=== PATIENT | female | born 1980 | race Caucasian/White ===

== ENCOUNTER 2025-01-16 18:03 | Day surgery (SDC) | payer BC, SELFPAY ==
[2025-01-16 18:07] VITALS: BP 155/99; PULSE 128; RESP 18; TEMP 37; O2SAT 99; BMI 27.8
--- NOTE | 2025-01-16 18:27 | CRLHL7_ITS ---
For Patients: As a result of the Century Cures Act, medical imaging exams and procedure reports are released immediately into your electronic medical record. You may view this report before your referring provider. If you have questions, please contact your health care provider. CLINICAL HISTORY: Right upper quadrant pain FINDINGS: Increased echogenicity of the liver. There is a normal appearance of the hepatic IVC and proximal abdominal aorta. There is no evidence of ascites. Stones in the gallbladder. The gallbladder wall measures for mm in thickness. Positive sonographic Barcenas`s sign. The common bile duct is of normal size and measures 3 mm in diameter at the level of the taylor hepatis. The visualized portions of the pancreas appears normal. Right kidney is unremarkable. IMPRESSION: 1. Cholelithiasis with wall thickening and positive sonographic Barcenas`s sign. Findings may reflect cholecystitis. Dictated by Devorah Molina MD @ 01/16/2025 8:10:34 PM (Electronically Signed)
--- NOTE | 2025-01-16 18:29 | ED_ITS ---
HPI - General Adult General Chief complaint: Abdominal Pain Stated complaint: Upper abdominal pain Time Seen by Provider: 01/16/25 18:05 History of Present Illness HPI narrative: Patient is a 44-year-old white female that is had intermittent nausea from Friday RO which she has been on for about the last 10 months. She has taken some Zofran that helped that. Since yesterday she has had pain in her epigastrium radiating through to her back. She reports she had a cardiac workup and a ultrasound over a year ago that were unremarkable. She denies trauma injury, food exacerbation. She has had no history of reflux. She has generally been pretty healthy. She does take iron, metformin minocycline. As mentioned she is also on Mounjaro. Related Data Home Medications ?Medication ?Instructions ?Recorded ?Confirmed ascorbic acid (vitamin C) 500 mg 500 mg PO DAILY 01/16/25 01/16/25 chewable tablet (Acerola C) cetirizine 10 mg tablet (24Hour 10 mg PO DAILY PRN 01/16/25 01/16/25 Allergy) ferrous sulfate 325 mg (65 mg 325 mg PO DAILY 01/16/25 01/16/25 iron) tablet (Feosol) metformin 500 mg tablet 500 mg PO QID 01/16/25 01/16/25 minocycline 50 mg capsule 50 mg PO DAILY 01/16/25 01/16/25 ondansetron HCl 4 mg tablet 4 mg PO Q6-8H PRN 01/16/25 01/16/25 soy isoflavone-black cohosh cap PO 01/16/25 root-magnolia bark 155 mg capsule (Estroven) tirzepatide 10 mg/0.5 mL 10 mg subcut QWEEK 01/16/25 01/16/25 subcutaneous pen injector (Mounjaro) Allergies Allergy/AdvReac Type Severity Reaction Status Date / Time codeine AdvReac Intermediate Verified 01/16/25 18:20 prochlorperazine (From AdvReac Intermediate Verified 01/16/25 18:20 Compazine) Review of Systems Status of ROS: Reports: 6 or more systems reviewed and unremarkable except as noted in History and below Exam Narrative: Exam Narrative: Objective: Patient's vital signs show slightly elevated blood pressure, pulse is slightly elevated 128. She is alert or x3 No marked distress HEENT is unremarkable heart rhythm regular heart murmur Lungs clear Pulses regular Abdomen soft, mild right upper quadrant epigastric tenderness to palpation. Mild guarding but no rebound or rigidity. Normal active bowel sounds Extremities normal neurologic nonfocal. Const: Vital Signs, click to edit/add: Vital Signs - 24 hr 01/16/25 18:07 01/16/25 19:04 01/16/25 19:15 Temperature 98.6 F Pulse Rate 107 H 99 Pulse Rate [Right Pulse Oximeter] 128 H Respiratory Rate 18 16 Blood Pressure [Ri ght Upper Arm] 155/99 H Pulse Oximetry 99 98 98 Oxygen Delivery Me thod Room Air 01/16/25 19:30 Temperature Pulse Rate 94 Pulse Rate [Right Pulse Oximeter] Respiratory Rate Blood Pressure [Ri ght Upper Arm] Pulse Oximetry 100 Oxygen Delivery Me thod Course Vital Signs Vital signs: Initial Vital Signs Temperature 98.6 F 01/16/25 18:07 Temperature Source Temporal Artery Scan 01/16/25 18:07 Pulse Rate 128 H 01/16/25 18:07 Pulse Rhythm Regular 01/16/25 18:07 Pulse Strength 3+ Normal 01/16/25 18:07 Respiratory Rate 18 01/16/25 18:07 Blood Pressure 155/99 H 01/16/25 18:07 Blood Pressure Mean 117 H 01/16/25 18:07 Blood Pressure Position Sitting 01/16/25 18:07 Pulse Oximetry 99 01/16/25 18:07 Oxygen Delivery Method Room Air 01/16/25 18:07 Vital Signs Temperature 98.6 F 01/16/25 18:07 Pulse Rate 128 H 01/16/25 18:07 Respiratory Rate 18 01/16/25 18:07 Blood Pressure 155/99 H 01/16/25 18:07 Pulse Oximetry 99 01/16/25 18:07 Oxygen Delivery Method Room Air 01/16/25 18:07 Temperature 98.6 F 01/16/25 18:07 Pulse Rate 94 01/16/25 19:30 Respiratory Rate 16 01/16/25 19:15 Blood Pressure 155/99 H 01/16/25 18:07 Pulse Oximetry 100 01/16/25 19:30 Oxygen Delivery Method Room Air 01/16/25 18:07 Medications Administered Medications: Generic Name Dose Route Start Last Admin Trade Name Freq PRN Reason Stop Dose Admin Ampicillin Sodium/Sulbactam 100 mls @ 200 mls/hr 03/16/25 19:51 01/16/25 20:00 Sodium 3 gm/ Sodium Chloride IVPB 01/16/25 19:52 200 mls/hr ONCE ONE Administration Discontinued Medications Generic Name Dose Route Start Last Admin Trade Name Kayla PRN Reason Stop Dose Admin Sodium Chloride 1,000 mls @ 6,000 mls/hr 01/16/25 18:30 01/16/25 20:00 0.9 % Sodium Chloride 1000 Ml IV 01/16/25 18:39 Infused .Q10M DEISI Infusion Morphine Sulfate 2 mg 01/16/25 18:27 01/16/25 18:57 Morphine 4 Mg/Ml Inj IVP 01/16/25 18:28 2 mg ONCE ONE Administration Ondansetron HCl 4 mg 01/16/25 18:27 01/16/25 18:58 Ondansetron 2 Mg/Ml Inj IVP 01/16/25 18:28 Not Given ONCE ONE Pantoprazole Sodium 40 mg 01/16/25 18:27 01/16/25 18:57 Pantoprazole Sodium 40 Mg Inj IVP 01/16/25 18:28 40 mg ONCE ONE Administration Medical Decision Making MDM Narrative Medical decision making narrative: 44-year-old female with history of epigastric and right upper quadrant abdominal pain radiating through her back consistent with biliary colic. Patient could also certainly a peptic ulcer issues. She had a negative ultrasound about a year ago by her report. She gets her Mon General from her primary care doctor at [facility], she has had nausea from that, and thinking this could be related certainly the medication as well. I suspect more likely this is a biliary colic situation, and will check an ultrasound, lab studies, give IV fluid, pain control, Protonix. Will also give additional Zofran. Disposition pending findings above. Addendum 7:52 p.m.: The patient has a slightly thickened gallbladder wall, mobile gallstones, she had persistent pain from yesterday. Her alk-phos is normal but her LFTs are elevated, likely from her having a fatty liver or from her gallbladder illness. She has no pericholecystic fluid. Discussed with Dr. Fall who recommended admission, IV antibiotics and NPO status for probable cholecystectomy tomorrow. She requested admission to the hospitalist service will discuss with Dr. G. patient were in agreement. Lab Data Labs: Lab Results 01/16/25 01/16/25 Range/Units 18:28 18:40 WBC 10.60 (4.50-11.00) K/uL RBC 5.57 H (4.00-5.20) m/uL Hgb 16.0 (12.0-16.0) gm/dL Hct 45.6 (33.0-51.0) % MCV 82 (80-100) fL MCH 29 (26-34) pg MCHC 35 (32-36) gm/dL RDW Coeff of [place] 12.7 (11.5-15.5) % Plt Count 325 (140-440) K/uL Neut % (Auto) 75.6 H (42.0-72.0) % Lymph % (Auto) 17.3 L (20-44) % Wheeler % (Auto) 5.3 (0.0-11.0) % Eos % (Auto) 1.1 (0.0-7.0) % Baso % (Auto) 0.4 (0.0-3.0) % Neut # (Auto) 8.00 H (1.7-7.0) K/uL Lymph # (Auto) 1.80 (0.90-2.90) K/uL Wheeler # (Auto) 0.60 (0.00-0.90) K/UL Eos # (Auto) 0.12 (0.00-0.50) K/uL Baso # (Auto) 0.04 (0.00-0.30) K/uL Abs Immat Gran (auto) 0.03 (0.00-0.30) K/uL Imm/Tot Granulo (auto) 0.3 % Sodium 138 (135-149) mmol/L Potassium 3.6 (3.6-5.1) mmol/L Chloride 99 (96-114) mmol/L Carbon Dioxide 25 (20-32) mmol/L Anion Gap 14 (7-15) mEq/L BUN 13 (5-24) mg/dL Creatinine 0.6 (0.5-1.5) mg/dL Estimated Creat Clear 98.98 Estimated GFR 113 ml/min Glucose 107 (60-115) mg/dL Lactate 1.1 (0.5-1.9) mmol/L Calcium 9.6 (8.4-10.6) mg/dL Total Bilirubin 1.8 H (0.1-1.5) mg/dL Direct Bilirubin 1.2 H (0.0-0.5) mg/dL AST 178 H (12-35) U/L ALT 130 H (4-35) U/L Alkaline Phosphatase 104 (40-150) U/L C-Reactive Protein 1.4 H (0.5-1.0) mg/dL Total Protein 8.4 H (6.0-8.3) g/dL Albumin 5.0 (3.3-5.0) g/dL Amylase 68 (18-89) U/L HCG, Qual Negative (Negative) POC Troponin I 0.00 L (0.01-0.04) ng/ml Discharge Plan Discharge Clinical Impression: Abdominal pain, Acute cholecystitis Patient Disposition: Admitted As Observation
[2025-01-16 18:49] LABS: Lactate* 1.1 mmol/L (0.5-1.9)
[2025-01-16 18:50] LABS: Basophils Absolute Auto 0.04 K/uL (0.00-0.30); Basophils Percent Auto 0.4 % (0.0-3.0); Eosinophils Absolute Auto 0.12 K/uL (0.00-0.50); Eosinophils Percent Auto 1.1 % (0.0-7.0); Hematocrit 45.6 % (33.0-51.0); Immature Granulocytes Abs Auto 0.03 K/uL (0.00-0.30); Immature Granulocytes Pct Auto 0.3 %; Lymphocytes Percent Auto 17.3 % (20-44); Mean Corpuscular HGB Conc 35 gm/dL (32-36); Mean Corpuscular Hemoglobin 29 pg (26-34); Mean Corpuscular Volume 82 fL (80-100); Monocytes Percent Auto 5.3 % (0.0-11.0); Neutrophils Percent Auto 75.6 % (42.0-72.0); Platelet Count* 325 K/uL (140-440); RDW Coefficient of Variation % 12.7 % (11.5-15.5); Red Blood Count 5.57 m/uL (4.00-5.20)
[2025-01-16 18:51] LABS: Slide Review Reflex No
[2025-01-16] MEDS: PANTOPRAZOLE SODIUM 40 MG INJ IVP (18:57)
[2025-01-16] MEDS: MORPHINE 4 MG/ML INJ 2 MG IVP (18:57)
[2025-01-16] MEDS: 0.9 % SODIUM CHLORIDE 1000 ml 1,000 ML 6000 ML IV (18:58)
[2025-01-16 19:04] VITALS: PULSE 107; O2SAT 98
[2025-01-16 19:12] LABS: Chloride* 99 mmol/L (96-114)
[2025-01-16 19:13] LABS: Potassium* 3.6 mmol/L (3.6-5.1); Sodium* 138 mmol/L (135-149)
[2025-01-16 19:15] VITALS: PULSE 99; RESP 16; O2SAT 98
[2025-01-16 19:15] LABS: Amylase* 68 U/L (18-89)
[2025-01-16 19:16] LABS: Anion Gap 14 mEq/L (7-15); Blood Urea Nitrogen* 13 mg/dL (5-24); Calcium* 9.6 mg/dL (8.4-10.6); Carbon Dioxide* 25 mmol/L (20-32); Creatinine* 0.6 mg/dL (0.5-1.5); Est. Creatinine Clearance* 98.98; Estimated Glomerular Filt Rate 113 ml/min; Glucose* 107 mg/dL (60-115)
[2025-01-16 19:17] LABS: Alanine Aminotransferase* 130 U/L (4-35); Alkaline Phosphatase* 104 U/L (40-150); Aspartate Amino Transferase* 178 U/L (12-35); Bilirubin Direct* 1.2 mg/dL (0.0-0.5); Bilirubin Total* 1.8 mg/dL (0.1-1.5); Total Protein* 8.4 g/dL (6.0-8.3)
[2025-01-16 19:20] LABS: C Reactive Protein* 1.4 mg/dL (0.5-1.0)
[2025-01-16 19:30] VITALS: PULSE 94; O2SAT 100
--- OUTSIDE RECORDS SUMMARY | 2025-01-16 19:31 | XMS_ITS | Encounter Summary ---
[facility] Address [address] [place] [address] Care Team Providers Care Cartography/Mapping Technician Name Role Phone Carolyn Anaya MD Primary Care Provider Encounter Details Date Type Department Care Team (Late st Contact Info) Description 12/07/2024 3:30 PM BUNDLE HELPER Telemedicine [facility] Medicine [address] [facility] [place] [address] Carolyn Anaya MD [address] [facility] [id number] Fatty liver (HRC) (Primary Dx); Type 2 diabetes mellitus without complication, without long-term current use of insulin (HRC); Obesity, Class I, BMI 30-34.9 (HRC) Social History Tobacco Use Types Packs/Day Years Used Date Smoking Tobacco: Former Cigarettes 0.5 13 0 11/03/1994 - 11/03/2007 Smokeless Tobacco: Never Comments:Quit smoking: Alcohol Use Standard Drinks/Week Comments Not Currently 0 (1 standard drink = 0.6 oz pur e alcohol) PHQ-2 Answer Date Recorded PHQ-2 Score 0 08/04/2024 Comments No Sex and Gender Information Value Date Recorded Sex Assigned at Not on file Legal Sex Female 5:40 AM CDT Gender Identity Not on file Sexual Orientation Not on file Occupation Industry Job Start Date Job End Date [employer] Not on file Not on file Not on file documented as of this encounter Patient Instructions * Patient Instructions* Carolyn Anaya MD - 12/07/2024 3:30 PM BUNDLE HELPER Side Effects of GLP-1 Medication How to manage side effects and get the nutrition you need Taking a GLP-1 medication (glucagon-like peptide-1 receptor agonist) can sometimes cause side effects, especially at higher doses. These side effects usually go away within several weeks. GLP-1 medication helps your brain tell your body when you're full. It also slows the time it takes for food to move out of your stomach. This can cause digestive trouble for some people. Read this handout to learn how to manage side effects while getting the nutrition your body needs. Managing side effects If you experience the following side effects, try the treatment listed below. Side effect Treatment Nausea or vomiting Eat smaller, more frequent meals. Eat slowly. Eat bland, low-fat foods; add a small portion of carbohydrate, such as crackers. Try cold food that doesn't have a strong smell. Avoid lying down after eating. Drink plenty of fluids, especially water. Also try drinking mint or morgan tea. Get some fresh air. Constipation Drink plenty of fluids, especially water. Include fiber at each meal. Fiber is found in fruits, vegetables, whole grains and beans. Avoid fried foods and sweets, as they take longer to digest. Get more physical activity. Diarrhea Drink plenty of fluids. Eat less fiber. Eat slowly. Eat until you're satisfied, but not full. Replace electrolytes if needed with a low- or no-sugar sports drink. Low appetite Eat smaller, more frequent meals. Include protein-rich foods at every meal. Choose chicken, turkey, fish, eggs, beans and other legumes, low-fat dairy products such as Vietnamese yogurt, and nuts, seeds and nut butters. Eat protein-rich foods first when eating a meal. Have protein-rich snacks, such as a protein drink. LE HELPER documented in this encounter Progress Notes * Carolyn Anaya MD - 12/07/2024 3:30 PM CST Subjective Christina Macias is a 43 y.o. female who presents today for a telemedicine visit to follow up weight loss efforts and diabetes therapy. She is currently on Mounjaro. She states she is doing better with the anti-nausea medication. She takes it 1-2 times a week if needed. She finds it worse at a dose increase. She is not at the highest dose yet. She is on her thirddose of 10 mg. She has lost 27 pounds so far and states the weight loss is slowing down. She does not have much of an appetite. She is thinking about getting into light weight lifting and walking. She has been using the Dexcom and states her glucose levels have improved. Her glucose levels are in the 90-100s daily. Average A1c level on her Dexcom is 5.9. Denies sleep apnea. She has not been checking her BP at home. She has not started the cholesterol medication yet, and is wondering if she should start it or waittill she has lab work. Active problem list, past medical history, allergies, surgical history and medications reviewed in specific EMR sections. Objective There were no vitals taken for this visit. Physical Exam Vitals reviewed. Neurological: Mental Status: She is alert and oriented to person, place, and time. Psychiatric: Mood and Affect: Mood normal. Behavior: Behavior normal. Thought Content: Thought content normal. Judgment: Judgment normal. Diagnoses and all orders for this visit: Fatty liver (HRC) - tirzepatide (MOUNJARO) 10 MG/0.5ML injection pen; Inject 10 mg subcutaneously once a week. - Albumin/Creatinine Ratio,Random Urine; Standing Type 2 diabetes mellitus without complication, without long-term current use of insulin (HRC) - tirzepatide (MOUNJARO) 10 MG/0.5ML injection pen; Inject 10 mg subcutaneously once a week. - Lipid Panel & Direct LDL (if Needed); Future - Albumin/Creatinine Ratio,Random Urine; Standing - Hgb A1C; Standing Other orders - ondansetron (ZOFRAN-ODT) 4 MG disintegrating tablet; Take 1 Tablet (4 mg) by mouth every 8 hours as needed for Nausea. Advice given to pt regarding problems in history or in plan: She will get the above mentioned lab work in February. Medications above were discussed and refilled. We discussed healthy weight loss per week. We discussed portion control when off the medication. We also discussed possible once a month inj ections to maintain weight. She will send a message if she notices no weight loss and needs to increase her dose. We discussed the use of statins and will see what her lipid panel results are. Informational resource was given for managing side effects. Follow up: PRN See filed results notes section for further plan based on results if applicable Scribed for Carolyn Anaya MD by broderick Wesley, on 12/07/2024 at 4:35 PM. ICarolyn MD, have personally reviewed and agreed with the information entered by the scribe. LE HELPER documented in this encounter Plan of Treatment Upcoming Encounters Date Type Department Care Team (Late st Contact Info) Description 01/17/2025 8:00 AM CDT Appointment [address] [place] [id number] Carolyn Anaya MD [address] [facility] [place] [id number] Scheduled Orders Name Type Priority Associated Diagnoses Orde r Schedule Lipid Panel & Direct LDL (if Needed) Lab Routine Type 2 diabetes mellitus without complication, without long-term current use of insulin (HRC) Expected: 12/07/2024, Expires: 03/07/2025 Albumin/Creatinine Ratio,Random Urine Lab Routine Fatty liver (HRC) Type 2 diabetes mellitus without complication, without long-term current use of insulin (HRC) 1 Occurrences starting 12/07/2024 until 12/07/2025 Hgb A1C Lab Routine Type 2 diabetes mellitus without complication, without long-term current use of insulin (HRC) 1 Occurrences starting 12/07/2024 until 12/07/2025 documented as of this encounter Visit Diagnoses Diagnosis Fatty liver (HRC)- Primary Other chronic nonalcoholic liver disease Type 2 diabetes mellitus without complication, without long-term current use of insulin (HRC) Obesity, Class I, BMI 30-34.9 (HRC) Obesity, unspecified documented in this encounter Care Teams Cartography/Mapping Technician Relationship Specialty Start Date End Date Carolyn Anaya MD [address] [place] [address] PCP - General Family Practice 02/28/22 documented as of this encounter
--- OUTSIDE RECORDS SUMMARY | 2025-01-16 19:31 | XMS_ITS | Clinical Summary ---
Author Organization [facility] Address [address] [place] [address] Care Team Providers Care Museum Host/Hostess Name Role Phone Carolyn Anaya MD Primary Care Provider [phone] Source Comments You are receiving this document as you are listed as the primary care provider,follow-up provider, or the patient has been referred to you for consultation.This is in compliance with the Medicare and[facility] Cent[facility] EHR Incentive Program,which states Providers who transition their patient to another setting of careor provider of care or refers their patient to another provider of care shouldprovide summary care record for each transition of care or referral. [facility] Allergies Active Allergy Reactions Criticality Noted Date Comments Codeine Nausea And Vomiting 03/14/2003 Other 04/15/2006 PN: mold,dust and cats Prochlorperazine 03/14/2003 PN: irritable Medications * This document contains information received from the source organization and may not represent a complete record from that organization. cetirizine (ZYRTEC) 10 MG tablet Take 1 Tablet (10 mg) by mouth daily. Active Black Ndroxn-Drb-Iuhhln- Magnol (ESTROVEN MOOD & MEMORY OR) Take by mouth. Active clotrimazole (LOTRIMIN) 1 % creamIndications:T inea Pedis Apply topically two times a day. Apply to bottom of feet/heels twice daily for three weeks Indications: Athlete's Foot 85 g 1 10/09/20 22 Active Additional Information Patient not taking.Reported on 08/18/2024 hydrocortisone 2.5 % cream Apply topically two times a day. 30 g 1 10/09/20 22 Active metroNIDAZOLE (METROGEL) 0.75 % gelIndications:Ros acea Apply topically daily. To face Indications: Rosacea 45 g 2 05/19/20 23 Active Lancets (ONETOUCH DELICA PLUS [id number]) MISCIndications:Ty pe II diabetes mellitus without mention of complication (HRC) Use to test three times daily. 300 Each 3 05/18/20 23 Active ONETOUCH VERIO FLEX w/Device meterIndications:T ype II diabetes mellitus without mention of complication (HRC) Use as directed. 1 Each 05/18/20 23 Active blood glucose (ONETOUCH VERIO) test stripIndications:T ype II diabetes mellitus without mention of complication (HRC) Use 1 Each to test three times a day. 300 Strip 3 05/14/20 23 Active valACYclovir (VALTREX) 1 g tablet Take 1 tablet by mouth twice daily for 5 days as needed. 30 Tablet 2 06/29/20 23 Active metFORMIN XR (GLUCOPHAGE XR) 500 MG 24 hour release tablet Take 4 Tablets (2,000 mg) by mouth every evening with a meal. 360 Tablet 2 07/20/20 24 Active Ascorbic Acid 125 MG CHEW Chew and swallow 1 Tablet (125 mg) by mouth daily. Take two gummies at night Active Dexcom G7 Sensor continuous blood glucose deviceIndications: Type 2 diabetes mellitus without complication, without long-term current use of insulin (HRC) Use as directed for continuous glucose monitoring. Change sensor every 10 days. 3 Each 08/18/20 24 Active tirzepatide (MOUNJARO) 2.5 MG/0.5ML injection penIndications:Typ e 2 diabetes mellitus without complication, without long-term current use of insulin (HRC),Fatty liver (HRC) Inject 2.5 mg subcutaneously one time weekly for 4 weeks. 2 mL 08/18/20 24 Active tirzepatide (MOUNJARO) 5 MG/0.5ML injection penIndications:Typ e 2 diabetes mellitus without complication, without long-term current use of insulin (HRC),Fatty liver (HRC) Inject 5 mg subcutaneously one time weekly for 4 weeks. Do not start before September 15, 2024. 2 mL 09/15/20 24 Active tirzepatide (MOUNJARO) 7.5 MG/0.5ML injection penIndications:Typ e 2 diabetes mellitus without complication, without long-term current use of insulin (HRC),Fatty liver (HRC) Inject 7.5 mg subcutaneously one time weekly for 4 weeks. Do not start before October 13, 2024. 2 mL 10/13/20 24 Active tirzepatide (MOUNJARO) 10 MG/0.5ML injection penIndications:Typ e 2 diabetes mellitus without complication, without long-term current use of insulin (HRC),Fatty liver (HRC) Inject 10 mg subcutaneously one time weekly for 4 weeks. Do not start before November 10, 2024. 2 mL 11/10/19 25 Active tirzepatide (MOUNJARO) 12.5 MG/0.5ML injection penIndications:Typ e 2 diabetes mellitus without complication, without long-term current use of insulin (HRC),Fatty liver (HRC) Inject 12.5 mg subcutaneously one time weekly for 4 weeks. Do not start before December 08, 2024. 2 mL 12/08/19 25 Active tirzepatide (MOUNJARO) 15 MG/0.5ML injection penIndications:Typ e 2 diabetes mellitus without complication, without long-term current use of insulin (HRC),Fatty liver (HRC) Inject 15 mg subcutaneously one time weekly for 4 weeks. Do not start before January 05, 2025. 2 mL 11 01/06/20 25 Active rosuvastatin (CRESTOR) 5 MG tabletIndications: Type 2 diabetes mellitus without complication, without long-term current use of insulin (HRC) Take 1 Tablet (5 mg) by mouth daily. 90 Tablet 3 08/21/20 24 025 Active minocycline (MINOCIN) 50 MG capsule Take 1 Capsule (50 mg) by mouth two times a day. 90 Capsule 4 08/30/20 24 Active tirzepatide (MOUNJARO) 10 MG/0.5ML injection penIndications:Fat ty liver (HRC),Type 2 diabetes mellitus without complication, without long-term current use of insulin (HRC) Inject 10 mg subcutaneously once a week. 2 mL 6 12/07/19 25 Active ondansetron (ZOFRAN-ODT) 4 MG disintegrating tablet Take 1 Tablet (4 mg) by mouth every 8 hours as needed for Nausea. 15 Tablet 12/07/19 25 Active Active Problems Problem Noted Date Diagnosed Date Fatty liver 02/09/2024 Type 2 diabetes mellitus 03/04/2023 Obesity, Class I, BMI 30-34.9 03/01/2022 Alcohol intolerance 03/01/2022 Hx of cold sores 03/01/2022 Anxiety 03/01/2022 Hyperglycemia 03/01/2022 Panic attacks 03/01/2022 Rosacea 04/08/2019 Hypertrophy of breast 04/19/2016 Female infertility 10/28/2011 Overview (06/25/2017): Female infertility of unspecified origin Encounters Date Type Department Care Team Description 12/10/[address] [address] Carolyn Anaya MD Prior Authorization For Medication (tirzepatide (MOUNJARO) 10 MG/0.5ML injection pen); Phone Call From Patient 12/07/2024 3:30 PM TREE INSPECTOR Telemedicine [address] [address] Carolyn Anaya MD Fatty liver (C) (Primary Dx); Type 2 diabetes mellitus without complication, without long-term current use of insulin (HRC); Obesity, Class I, BMI 30-34.9 (HRC) 11/01/2024 7:00 AM TREE INSPECTOR E-Visit [address] [address] Carolyn Anaya MD Chief Comp: Medication Questions from Last 3 Months Immunizations Immunization Administration Dates Next Due DTP 06/16/1986, 2,06/05/1981,1980,01/23/1981 Flu Vac Preserv Free (3+yrs) 07/20/2009,10/06/20 06,08/03/2004 HepA Adult (19+ yrs) 02/28/2022,09/23/2016 HepB Adult (Heplisav-B, 19+ yrs, 2 dose series) 02/26/2023 Influenza IIV4 (Quadrivalent ) 0.5mL (40461) 10/09/2022,09/19/2021,10/17/2020,2018,12/17/2018,09/23/2016 Influenza ccIIV3 6 months+ (Flucelvax) 08/18/2024 Influenza, Unspecified Formulation 10/10/2003 MMR 03/05/1982 OPV, Trivalent (Orimune or tOPV) 986,06/18/1982,04/05/1981,1980 PCV20 ([id number]) 10/09/2022 Pfizer COVID-19 12+ 08/18/2024,08/25/2023 Pfizer Monovalent 12+ 06/22/2022 Pfizer Monovalent 12+ Purple Top 09/19/2021,04/,01/23/2021 TDAP (BOOSTRIX) 04/29/2013 Td 08/03/2004 Tdap 08/25/2023 Typhoid (Typhim Vi, IM) 09/23/2016 Family History Medical History Relation Name Comments Autism Father Mom Diabetes Father Mom Cataract Mother Candy Diabetes Mother Candy Fibromyalgia Mother Candy Rheum Arthritis Mother Candy addiction Mother Candy Diabetes Maternal Aunt Christal Diabetes Maternal Grandfather Santos Diabetes Maternal Grandmother Delia Cancer Paternal Grandfather Gpa Other Sister 1 chiari formatio n Heart Murmur Sister 2 Amblyopia/Strabismus Negative Family History Cancer, Breast Negative Family History Glaucoma Negative Family History Macular Degeneration Negative Family History Retinal Detachment Negative Family History Relation Name Status Comments Father Mom Mother Candy Maternal Aunt Christal Maternal Grandfather Santos Maternal Grandmother Delia Paternal Grandfather Gpa Sister 1 Sister 2 Alive Social History Tobacco Use Types Packs/Day Years Used Date Smoking Tobacco: Former Cigarettes 0.5 13 0 11/03/1994 - 11/03/2007 Smokeless Tobacco: Never Tobacco Cessation:Counseling Given: Not Answered Comments:Quit smoking: Alcohol Use Standard Drinks/Week Comments [...] file Not on file Not on file Last Filed Vital Signs Vital Sign Reading Time Taken Comments Blood Pressure 127/76 08/18/2024 9:51 AM CDT Pulse 92 08/18/2024 9:51 AM CDT Temperature 36.9 C (98.4 F) 11/11/2022 4:14 PM TREE INSPECTOR Respiratory Rate 16 11/11/2022 4:14 PM TREE INSPECTOR Oxygen Saturation 99% 11/11/2022 4:14 PM TREE INSPECTOR Inhaled Oxygen Concentration - - Weight 83.9 kg (185 lb) 08/18/2024 9:51 AM CDT Height 160 cm (5' 3) 02/26/2023 11:23 AM CDT Body Mass Index 32.77 02/26/2023 11:23 AM CDT Plan of Treatment Upcoming Encounters Date Type Department Care Team (Late st Contact Info) Description 01/17/2025 8:00 AM CDT Appointment [facility] Medicine [address] [facility] [place] [address] Carolyn Anaya MD [address] [place] [address] Health Maintenance Due Date Last Done Comments HepB (2) 03/26/2023 02/26/2023 Diabetes: Urine Microalbumin 02/03/2025 02/04/2024, 11/26/2022 Diabetes: HGBA1C 02/16/2025 08/18/2024, 01/2024, 06/18/2023, Additional history exists Adult Preventive Visit 02/26/2025 02/26/2023, 2021 Diabetes: Eye Exam 05/19/2025 05/19/2024, 02/26/2023 Diabetes: Creatinine 08/18/2025 08/18/2024, 02/04/2024, 02/25/2023, Additional history exists Diabetes: Foot Exam 08/18/2025 08/18/2024, 08/25/2023, 10/09/2022 (Completed) Mammogram 08/18/2025 08/18/2024, 06/03, 03/07/2022 Cervical Cancer Screening 02/27/20282022, 03/09/2018, 03/09/2018 (Completed), Additional history exists Diabetes: Lipid Panel 08/18/2029 08/18/2024 , 06/18/2023, 02/28/2022, Additional history exists Zoster/Shingles (1 of 2) 2030 DTaP/Tdap/Td (8 - Tdap) 08/25/2033 08/25/20, 04/29/2013, 08/03/2004, Additional history exists IPV (Polio) Completed 06/16/1986, 06/03, 04/05/1981, Additional history exists HIV Screening (Preventive Services) Completed 05/14/2007, 12/06/2005 HepA Completed 02/28/2022, 09/23/2016 Pneumococcal Completed 10/09/2022 Hep C Screening (Preventive Services) Completed 06/18/2023 COVID-19 Vaccine Completed 08/18/2024, , 06/22/2022, Additional history exists Influenza Completed 08/18/2024, 05/2022, 09/19/2021, Additional history exists HPV Vaccine Aged Out No longer eligi ble based on patient's age to complete this topic Hib Aged Out No longer eligi ble based on patient's age to complete this topic MCV4 Aged Out No longer eligi ble based on patient's age to complete this topic Meningococcal B Aged Out No longer el igible based on patient's age to complete this topic Procedures Procedure Name Priority Date/Time Associated Diagnosis Comments MM MAMMOGRAM SCREENING BILAT W 3D XAVI W CAD Routine 08/18/2024 12:21 PM CDT COMPREHENSIVE METABOLIC PANEL Routine 08/18/2024 11:34 AM CDT Type 2 diabetes mellitus without complication, without long-term current use of insulin (HRC) LIPID PANEL & DIRECT LDL (IF NEEDED) Routine 08/18/2024 11:34 AM CDT Type 2 diabetes mellitus without complication, without long-term current use of insulin (HRC) Fatty liver (HRC) HGB A1C Routine 08/18/2024 11:34 AM CDT Type 2 diabetes mellitus without complication, without long-term current use of insulin (HRC) ALBUMIN/CREAT RATIO Routine 02/04/2024 1 0:54 AM CDT Type 2 diabetes mellitus (HRC) HEPATITIS C ANTIBODY, WITH REFLEX Routine 06/18/2023 8:02 AM CDT Preventative health care CYTOLOGY (PAP) Routine 02/26/2023 12:15 PM CDT Cervical cancer screening MONTEZ (DIABETIC EYE EXAM) 02/26/2023 HIV ANTIBODY Routine 05/14/2007 5:40 PM CDT from Last 3 Months or Most Recently Relevant to Health Maintenance Results * MM Mammogram Screening Bilat W 3D Xavi W CAD (08/18/2024 12:21 PM CDT) Anatomical Region Laterality Modality Breast Bilateral Mammography Impressions 08/18/2024 1:32 PM CDT : ACR BI-RADS Category 1: Negative RECOMMENDATION: Follow Up Imaging in 12 months - Bilateral The results and recommendations of this examination will be communicated to the patient. Narrative 08/18/2024 1:32 PM CDT MM MAMMOGRAM SCREENING BILAT W 3D XAVI W CAD performed on 08/18/24 FDA Accredited Facility: [place] [address] Compared to: 06/18/2023 MM Mammogram Screening Bilat W 3D Xavi W CAD and 03/07/2022 MM Mammogram Screening Bilat W 3D Xavi W CAD FINDINGS: Bilateral screening mammogram was performed with the assistance of Computer-Aided Detection and breast tomosynthesis. There are scattered areas of fibroglandular density. There is no radiographic evidence of malignancy. us Carolyn Anaya MD [facility] Final Result * (ABNORMAL) Lipid Panel & Direct LDL (if Needed) (08/18/2024 11:34 AM CDT) Cholesterol 217(H) 0 - 199 mg/dL 08/18/2024 5:52 PM CDT [facility] Triglyceride 206(H) <=149 mg/dL 08/18/2024 5:52 PM CDT [facility] HDL Cholesterol 58 >=40 mg/dL 5:52 PM CDT [facility] LDL, Calculated 118 <130 mg/dL 5:52 PM CDT [facility] Non HDL Chol, Calculated 159 <=159 mg/dL 08/18/2024 5:52 PM CDT [facility] Cholesterol/HDL Ratio 3.7 <=5.0 08/18/2024 5:52 PM CDT [facility] Hours Fasting 3.0 8 - 12 Hours 08/18/2024 5:52 PM CDT [facility] Blood Venipuncture / Unknown 08/18/2024 11:34 AM CDT 08/18/2024 11:34 AM CDT Carolyn Anaya MD LAB_1 Final Result [facility] [address] [place], [place] [address] [address] [place] [address] * (ABNORMAL) Comp Metabolic Panel (08/18/2024 11:34 AM CDT) Sodium 139 136 - 145 mmol/L 08/18/2024 5:52 PM CDT [facility] Potassium 4.2 3.5 - 5.1 mmol/L 08/18/2024 5:52 PM CDT [facility] Chloride 103 98 - 109 mmol/L 08/18/2024 5:52 PM CDT [facility] CO2 22 20 - 29 mmol/L 08/18/2024 5:52 PM CDT [facility] Anion Gap 14 6 - 16 mmol/L 08/18/2024 5:52 PM CDT [facility] Calcium 10.3 8.4 - 10.4 mg/dL 08/18/2024 5:52 PM CDT [facility] BUN 14 7 - 26 mg/dL 08/18/2024 5:52 PM CDT [facility] Creatinine 0.53(L) 0.55 - 1.02 mg/dL 08/18/2024 5:52 PM CDT [facility] Alkaline Phosphatase 93 40 - 150 U/L 08/18/2024 5:52 PM CDT [facility] AST (SGOT) 32 10 - 40 U/L 08/18/2024 5:52 PM CDT [facility] ALT (SGPT) 49 <=55 U/L 08/18/2024 5:52 PM CDT [facility] Bilirubin, Total 0.4 0.2 - 1.2 mg/dL 08/18/2024 5:52 PM CDT [facility] Protein, Total 8.1 6.4 - 8.3 g/dL 08/18/2024 5:52 PM CDT [facility] Albumin 4.2 3.5 - 5.0 g/dL 08/18/2024 5:52 PM T [facility] Glucose 151(H) 70 - 100 mg/dL 08/18/2024 5:52 PM T [facility] Comment:The given reference range is for the fasting state. Non-fasting reference range for glucose is 70 - 180 mg/dL. GFR, Estimated >60 >60 mL/min/1.7 3m2 08/18/2024 5:52 PM T [facility] Hours Fasting 3.0 8 - 12 Hours 08/18/2024 5:52 PM T [facility] Blood Venipuncture / Unknown 08/18/2024 11:34 AM CDT 08/18/2024 11:34 AM CDT Carolyn Anaya MD LAB_1 Final Result [facility] [address] [place] [address], [facility] [address] [place] [address], [facility] * (ABNORMAL) Hgb A1C (08/18/2024 11:34 AM CDT) Hemoglobin A1C 6.0(H) <=5.6 % 08/18/2024 8:23 PM CDT [facility] Estimated Average Glucose (Calc) 126 < 117 mg/dL 08/18/2024 8:23 PM CDT [facility] Comment:Estimated average gl ucose (eAG) converts A1c into glucose units (mg/dL) and estimates average glucose over the past approximately 3 months. The eAG reference interval (<117 mg/dL) corresponds to an A1c of <5.7%. Blood Venipuncture / Unknown 08/18/2024 11:34 AM CDT 08/18/2024 11:34 AM CDT Narrative [facility] - 08/18/2024 8:23 PM CDT For patients not previously diagnosed with diabetes: 5.7-6.4%: Increased risk for diabetes 6.5% and greater: Diagnostic for diabetes For patients diagnosed with diabetes: <8.0%: Goal of therapy for ages 18-75 Clinicians may recommend a higher or lower goal for specific individuals. us Carolyn Anaya MD LAB_1 Final Result Performing Organization Address City/State/[facility] Co de Phone Number [facility] [address] * Albumin/Creatinine Ratio,Random Urine (02/04/2024 10:54 AM CDT) Albumin/Creati nine Ratio, Urine, Random 16 <30 mg/g 02/04/2024 4:17 PM CDT [facility] Albumin, Urine, Random 21.8 mg/L 02/04/2024 4:17 PM CDT [facility] Creatinine, Urine, Random 134 >20 mg/dL mg/dL 02/04/2024 4:17 PM CDT [facility] Urine Non-blood Collection / Unknown 02/04/2024 10:54 AM CDT 02/04/2024 11:30 AM CDT Carolyn Anaya MD LAB_1 Final Result Performing Organization Address [facility] Co de Phone Number [facility] [address] [place] [address] * Hepatitis C Antibody, with Reflex (06/18/2023 8:02 AM CDT) Hepatitis C Antibody Negative (Non Reactive) Negative (Non Reactive) 06/18/2023 4:43 PM CDT [facility] Comment:Antibodies to HCV no t detected. Does not exclude the possiblity of exposure to HCV. Blood Venipuncture / Unknown 06/18/2023 8:02 AM CDT 06/18/2023 8:02 AM CDT Carolyn Anaya MD LAB_1 Final Result Performing Organization Address [facility] de Phone Number [facility] [address] [place] [address] * PAP Test (02/26/2023 12:15 PM CDT) Pathologist [facility] Case Report Pap Case: [id number] Authorizing Provider: Carolyn Anaya MD Collected: 02/26/2023 1215 Ordering Location: [facility] Received: 02/27/2023 0740 First Screen: Anne Ernst Specimen: Pap Test, Routine, Cervix/Endocervix 03/12/2023 9:49 AM CDT [facility] Pap Specimen Adequacy Satisfactory for evaluation, endocervical/rico sformation zone component present. 03/12/2023 9:49 AM CDT [facility] Pap Interpretation (NILM) Negative for intraepithelial lesion or malignancy. 03/12/2023 9:49 AM CDT [facility] at 0949 CDT Pap Disclaimer The Pap test is a screening test designed to aid in the detection of cervical cancer and its precursor lesions. It is not a diagnostic procedure and should not be used as the sole means of detecting cervical cancer. Both false-positive and false-negative results may occur. 03/12/2023 9:49 AM CDT [facility] Gross Description The specimen is received in SurePath fixative and properly labeled. 1 Pap-stained SurePath slide is prepared. 03/12/2023 9:49 AM CDT [facility] Embedded Images 9:49 AM CDT [facility] Other Specimen Type ENTIRE ENDOCERVIX / Unknown 02/26/2023 12:15 PM CDT 02/27/2023 7:40 AM CDT Comment:LMP: No LMP recorded . us Carolyn Anaya MD LAB PATHOLOGY Final Result [facility] [address] * MONTEZ (DIABETIC EYE EXAM) (02/26/2023) us Interface Provider MD DUMMY/OTHER/AR Final Resu lt * HIV Antibody (05/14/2007 5:40 PM CDT) HIV 1/HIV 2 Non Reac Non Reac HP CONVERSION 05/14/2007 5:40 PM CDT us Leona Watkins MD LAB_1 Final Resu lt HP CONVERSION from Last 3 Months or Most Recently Relevant to Health Maintenance Insurance BCBS OUT OF STATE Care Teams Museum Host/Hostess Relationship Specialty Start Date End Date Carolyn Anaya MD [address] [place] [address] [place] [address] PCP - General Family Practice 02/28/22
--- OUTSIDE RECORDS SUMMARY | 2025-01-16 19:31 | XMS_ITS | Encounter Summary ---
Author Organization [facility] Address [address] [place] [address] Care Team Providers Care Content Coordinator Name Role Phone Carolyn Anaya MD Primary Care Provider [phone] Reason for Visit * Reason Comments Prior Authorization For Medication tirze patide (MOUNJARO) 10 MG/0.5ML injection pen Phone Call From Patient Encounter Details Date Type Department Care Team (Late st Contact Info) Description 12/10/2024 Telephone [facility] [address] [facility] [place] [phone] Carolyn Anaya MD [address] [facility] [place] [id number] Prior Authorization For Medication (tirzepatide (MOUNJARO) 10 MG/0.5ML injection pen); Phone Call From Patient Social History Tobacco Use Types Packs/Day Years [...] on file documented as of this encounter Nursing Notes * Lizette Kingston - 12/21/2024 1:42 PM CST The prior authorization for tirzepatide (MOUNJARO) 10 MG/0.5ML injection pen has been approved. Authorized from November 22, 2024 to December 17, 2025 Pharmacy was notified via fax, and asked them to notify the patient when prescription is ready for belt picker. SPECIALIST * Sasha Dubois RN - 12/16/2024 5:05 PM CST Portal updated SPECIALIST * Lyn Banegas - 12/16/2024 3:06 PM CST Current status shows that we are waiting for a response from insurance. Will route message to appropriate dept to follow up. SPECIALIST * Brittany New - 12/16/2024 2:15 PM CST Pt called back with pharmacy info, as she'd been informed that pharmacy has to review PA as well, amidst insurance carrier; pt thinks she's got a separate RX insurance number for the PA submission: [employer] (pharmacy-side of insurance, says pt) Number/ID: (phone number for finalization: [phone]) RX BIN: [id number] and Group number: [id number] If [id number] website rangel code, if finalizing online: [id number] Pt is okay with phone calls and vm. Pt is also okay with mychart communication. SPECIALIST * Sandra Borja - 12/13/2024 11:25 AM CST Prior Authorizations What prior authorization is needed? Mounjaro Insurance Carrier: New: /[facility] Insurance Carrier (if different from above): For a medication PA, patient would like it filled at the pharmacy listed in Meds & Orders. Additional comments (related to the above concern): Patient calling states no longer has [place] insurance BC/BS is new asking if PA was summited to [place] needs to be corrected and sent to BC/BS out of state. Preferred communication method: Phone Call. Is it okay to leave a detailed message on your voicemail? Yes Is there anything else I can help you with today? SPECIALIST * Carlos Mariscal - 12/10/2024 4:02 PM CST Prior authorization has been initiated for tirzepatide (MOUNJARO) 10 MG/0.5ML injection pen . SPECIALIST documented in this encounter Plan of Treatment Upcoming Encounters Date Type Department Care Team (Late st Contact Info) Description 01/17/2025 8:00 AM CDT Appointment [address] [place] [address] Carolyn Anaya MD [address] [place] [address] documented as of this encounter Visit Diagnoses Not on filedocumented in this encounter Care Teams Content Coordinator Relationship Specialty Start Date End Date Carolyn Anaya MD [address] [place] [address] PCP - General Family Practice 02/28/22 documented as of this encounter
[2025-01-16 19:32] LABS: HCG Qualitative Serum* Negative (Negative)
[2025-01-16] MEDS: AMPICILLIN/SULBACTAM 3 GM in 0.9 % SODIUM CHLORIDE Mini-bag 100 ML IVPB (20:00)
[2025-01-16 20:40] VITALS: BP 143/82; PULSE 101; RESP 18; TEMP 36.4; O2SAT 99; BMI 27.0
--- NOTE | 2025-01-16 21:47 | PM.IMHP1 ---
Hospitalist- H&P: HPI History of Present Illness Date Seen: 01/16/25 Chief complaint: Upper abdominal pain Narrative: Christina Macias is a 44 year old woman presents with the roughly 24 hour history of epigastric and right upper quadrant abdominal pain radiating to her back. She has had about 5 such episodes over the course of the past year. Unable to identify aggravating factors including food. Denies fevers, rigors, diaphoresis. Nausea associated with this without vomiting. No constipation or diarrhea. No dysuria, urgency, frequency, or hematuria. Is perimenopausal and her last menstrual period was 12/24/2024. Denies dysmenorrhea. Was assessed about 10 months ago at [facility], when not symptomatic with abdominal ultrasound for the same and was told that the gallbladder wall was slightly thickened but no mention was made of stones at that time. Review of Systems Status of ROS: Reports: 6 or more systems reviewed and unremarkable except as noted in History and below Narrative: Blood sugars well controlled. Has continuous glucose monitoring device. Blood sugars typically around 100. Hemoglobin A1c recently 5.7. PFSH PFS Medical History Seasonal allergic rhinitis ?J30.2 - Other seasonal allergic rhinitis (ICD-10) Iron deficiency anemia ?D50.9 - Iron deficiency anemia, unspecified (ICD-10) Rosacea ?L71.9 - Rosacea, unspecified (ICD-10) Diabetes mellitus type II, controlled, with no complications ?E11.9 - Type 2 diabetes mellitus without complications (ICD-10) Recurrent biliary colic ?K80.50 - Calculus of bile duct without cholangitis or cholecystitis without obstruction (ICD-10) 1 para 1 ?Z78.9 - Other specified health status (ICD-10) Surgical History Status post urethral surgery ?Z98.890 - Other specified postprocedural states (ICD-10) Status post ?Z98.891 - History of uterine scar from previous surgery (ICD-10) Social History Narrative: . Lives with . 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 Older dog, Ericka. What is your current living situation?: I presently have a place to live Problems where you live: no known problems Problems where you live details: na In the past 12 months, utilities in danger of being shut off: no In past 12 months, lack of transportation kept you from medical appts, meetings, work, or getting things needed for daily living: no In the past 12 mos, have been you worried that your food would run out before you had money to buy more?: never true In the past 12 mos, the food you bought just didn't last and you didn't have money to buy more?: never true Highest level of school completed/degree received: high school graduate Smoking Status: Former smoker How often do you have a drink containing alcohol: never AUDIT-C Alcohol total score: 0 Non-prescribed substance use: denies use Caffeine: Yes How often does anyone, including family, friends and others, physically hurt you: never How often does anyone, including family, friends and others, insult or talk down to you: never How often does anyone, including family, friends and others, threaten you with harm: never How often does anyone, including family, friends and others, scream or curse at you: never service: No Meds Home Medications and Allergies Home Medications ?Medication ?Instructions ?Recorded ?Confirmed ?Type ascorbic acid (vitamin C) 500 mg 500 mg PO DAILY 01/16/25 01/16/25 History chewable tablet (Acerola C) cetirizine 10 mg tablet (24Hour 10 mg PO DAILY PRN 01/16/25 01/16/25 History Allergy) ferrous sulfate 325 mg (65 mg 325 mg PO DAILY 01/16/25 01/16/25 History iron) tablet (Feosol) metformin 500 mg tablet 500 mg PO QID 01/16/25 01/16/25 History minocycline 50 mg capsule 50 mg PO DAILY 01/16/25 01/16/25 History ondansetron HCl 4 mg tablet 4 mg PO Q6-8H PRN 01/16/25 01/16/25 History soy isoflavone-black cohosh cap PO 01/16/25 History root-magnolia bark 155 mg capsule (Estroven) tirzepatide 10 mg/0.5 mL 10 mg subcut QWEEK 01/16/25 01/16/25 History subcutaneous pen injector (Mounjaro) Allergies Allergy/AdvReac Type Severity Reaction Status Date / Time codeine AdvReac Intermediate Verified 01/16/25 18:20 prochlorperazine (From AdvReac Intermediate Verified 01/16/25 18:20 Compazine) Exam Narrative: Exam Narrative: I examine her in the emergency department. No acute distress. Alert and oriented x4. Friendly, articulate, cooperative. Vision and hearing are adequate. External auditory canals are clear tympanic membranes are normal. Midline nasal septum. Moist buccal mucosa. Dentition good repair. No icterus. Conjugate gaze. Neck is supple. Midline trachea. No head neck lymphadenopathy. Lungs are clear to auscultation without wheezing, rhonchi, or rales. Chest wall excursions are full. No CVA tenderness. Heart tones with regular rhythm, normal S1-S2, without murmur, gallop, or rub. PMI is not laterally displaced. Abdomen with active bowel sounds, soft, nontender at this time. Did receive analgesics. Moves all 4 extremities. No focal motor neurologic deficits. No jaundice, petechiae, rashes, or wounds. Capillary refill less than 3 seconds in distal extremities. No edema. Const: Vital Signs, click to edit/add: Vital Signs - 24 hr 01/16/25 18:07 01/16/25 19:04 01/16/25 19:15 Temperature 98.6 F Pulse Rate 107 H 99 Pulse Rate [Pulse Oximeter] Pulse Rate [Right Pulse Oximeter] 128 H Respiratory Rate 18 16 Blood Pressure [Le ft Arm] Blood Pressure [Ri ght Upper Arm] 155/99 H Pulse Oximetry 99 98 98 Oxygen Delivery Me thod Room Air 01/16/25 19:30 01/16/25 20:40 01/16/25 20:40 Temperature 97.6 F Pulse Rate 94 Pulse Rate [Pulse Oximeter] 101 H Pulse Rate [Right Pulse Oximeter] Respiratory Rate 18 18 Blood Pressure [Le ft Arm] 143/82 H Blood Pressure [Ri ght Upper Arm] Pulse Oximetry 100 99 99 Oxygen Delivery Me thod Room Air Room Air Hospitalist - H&P: Result Labs Labs: Short CBC 01/16/25 Range/Units 18:40 WBC 10.60 (4.50-11.00) K/uL Hgb 16.0 (12.0-16.0) gm/dL Hct 45.6 (33.0-51.0) % Plt Count 325 (140-440) K/uL BMP 01/16/25 18:40 Sodium 138 Potassium 3.6 Chloride 99 Carbon Dioxide 25 BUN 13 Creatinine 0.6 Glucose 107 Calcium 9.6 Liver Function 01/16/25 Range/Units 18:40 Total Bilirubin 1.8 H (0.1-1.5) mg/dL Direct Bilirubin 1.2 H (0.0-0.5) mg/dL AST 178 H (12-35) U/L ALT 130 H (4-35) U/L Alkaline Phosphatase 104 (40-150) U/L Albumin 5.0 (3.3-5.0) g/dL ECG Attestation: I personally reviewed and interpreted this ECG as follows: ECG interpretation date: 01/16/25 Interpretation: Normal sinus rhythm without ischemic or infarction pattern. Imaging US - abdomen: Radiologist's impression: IMPRESSION: 1. Cholelithiasis with wall thickening and positive sonographic Barcenas`s sign. Findings may reflect cholecystitis. Assessment and Plan Assessment and plan (1) Recurrent biliary colic: Status: Acute (2) Cholelithiasis: Status: Acute (3) Acute cholecystitis: Problem comment: - admit to observation. Consult with General surgery. - NPO. IV fluids. Analgesics and antiemetics p.r.n.. - ampicillin and sulbactam 3 g IV q.6 hours. Status: Acute (4) Diabetes mellitus type II, controlled, with no complications: Problem comment: - regular insulin sliding scale while NPO q.6 hours - hold metformin and Mounjaro in-hospital Status: Acute Plan 1. Reviewed impression and recommendation with patient and 2. Our emergency department physician spoke with our general surgeon who will see the patient in consultation in the morning for possible surgical intervention 3. Answered patient's and 's questions to their satisfaction 4. They are agreeable with above stated plans and recommendations Total Time Spent Total Time Spent: 60 minutes
[2025-01-16] MEDS: MORPHINE 4 MG/ML INJ IVP (22:28)
[2025-01-16] MEDS: 0.9 % SODIUM CHLORIDE 1000 ml 1,000 ML 125 ML IV (22:31)
[2025-01-16 23:00] VITALS: BP 114/72; PULSE 101; PULSE 93; RESP 18; TEMP 36.6; O2SAT 98; O2SAT 99
[2025-01-17] VITALS (24 sets, daily range): BP systolic 103–150; BP diastolic 70–88; PULSE 85–116; RESP 14–20; TEMP 36.4–36.7; O2SAT 95–100
[2025-01-17] MEDS: MORPHINE 4 MG/ML INJ IVP ×2 (02:34→06:27)
[2025-01-17] MEDS: AMPICILLIN/SULBACTAM 3 GM in 0.9 % SODIUM CHLORIDE Mini-bag 100 ML IVPB ×2 (02:35→07:34)
[2025-01-17] MEDS: 0.9 % SODIUM CHLORIDE 1000 ml 1,000 ML 125 ML IV (06:25)
[2025-01-17 06:34] LABS: Lactate* 2.8 mmol/L (0.5-1.9)
[2025-01-17 06:39] LABS: Basophils Absolute Auto 0.03 K/uL (0.00-0.30); Basophils Percent Auto 0.4 % (0.0-3.0); Eosinophils Absolute Auto 0.14 K/uL (0.00-0.50); Eosinophils Percent Auto 1.7 % (0.0-7.0); Hematocrit 40.7 % (33.0-51.0); Immature Granulocytes Abs Auto 0.01 K/uL (0.00-0.30); Immature Granulocytes Pct Auto 0.1 %; Lymphocytes Absolute Auto 2.27 K/uL (0.90-2.90); Lymphocytes Percent Auto 27.2 % (20-44); Mean Corpuscular HGB Conc 34 gm/dL (32-36); Mean Corpuscular Hemoglobin 29 pg (26-34); Mean Corpuscular Volume 84 fL (80-100); Monocytes Percent Auto 6.3 % (0.0-11.0); Neutrophils Absolute Auto 5.38 K/uL (1.7-7.0); Neutrophils Percent Auto 64.3 % (42.0-72.0); Platelet Count* 278 K/uL (140-440); RDW Coefficient of Variation % 12.9 % (11.5-15.5); Red Blood Count 4.85 m/uL (4.00-5.20); White Blood Count* 8.36 K/uL (4.50-11.00)
[2025-01-17 06:44] LABS: Slide Review Reflex No
[2025-01-17 06:49] LABS: Chloride* 106 mmol/L (96-114)
[2025-01-17 06:50] LABS: Albumin* 4.1 g/dL (3.3-5.0); Potassium* 4.4 mmol/L (3.6-5.1); Sodium* 140 mmol/L (135-149)
[2025-01-17 06:52] LABS: Blood Urea Nitrogen* 11 mg/dL (5-24); Creatinine* 0.5 mg/dL (0.5-1.5); Est. Creatinine Clearance* 118.77; Estimated Glomerular Filt Rate 119 ml/min
[2025-01-17 06:53] LABS: Alanine Aminotransferase* 291 U/L (4-35); Alkaline Phosphatase* 102 U/L (40-150); Anion Gap 9 mEq/L (7-15); Aspartate Amino Transferase* 285 U/L (12-35); Bilirubin Direct* 0.6 mg/dL (0.0-0.5); Bilirubin Total* 1.3 mg/dL (0.1-1.5); Calcium* 8.7 mg/dL (8.4-10.6); Carbon Dioxide* 25 mmol/L (20-32); Glucose* 96 mg/dL (60-115); Lipase* 127 U/L (23-300)
[2025-01-17 06:56] LABS: C Reactive Protein* 1.6 mg/dL (0.5-1.0)
--- NOTE | 2025-01-17 07:00 | PC.NURSE ---
Pt arrived to the floor around 2100, alert, oriented and vitally stable. Pt rates pain 6/10 throughout shift, prn morphine given. denies nausea. Pt has dexcom, though would like to use our blood glucose monitors. Pt NPO, moves independently, tolerates well. Pt in bed, appears to be resting, call light within reach.
--- NOTE | 2025-01-17 07:30 | CRLHL7_ITS ---
For Patients: As a result of the Century Cures Act, medical imaging exams and procedure reports are released immediately into your electronic medical record. You may view this report before your referring provider. If you have questions, please contact your health care provider. INDICATION : Laparoscopic cholecystectomy. TECHNIQUE : Intraoperative cholangiogram. Contrast injected via gallbladder neck and cystic duct. FINDINGS : Fluoroscopy time was 45.4 seconds Four images were obtained. IMPRESSION : Normal caliber intra and extrahepatic ducts. No filling defects. Contrast seen within the duodenum. Normal intraoperative cholangiogram. Dictated by Ole Ashby MD @ 01/17/2025 9:42:26 AM (Electronically Signed)
--- NOTE | 2025-01-17 07:37 | P.GSCN_ITS ---
History of Present Illness Consult details Date Seen: 01/17/25 Consult date: 01/17/25 Narrative: The patient is a 44-year-old female who presented to the ER with right upper quadrant pain. She states that around 3:00 p.m. yesterday afternoon she developed epigastric pain radiating to her right upper quadrant and back. She had nausea with this but then took Zofran. She does have Zofran as she develops nausea when she takes Mounjaro. She last took this on Friday. She has not had any change in her bowel habits. She does not have any shortness of breath. She states that if she had not eaten anything before the pain came on but did have a late breakfast. She has had similar episodes on and off for the last 1-2 years. She states that she has had about 5 episodes that have come on randomly and not necessarily with eating. Using a heating pad will he usually help but this time the heating pad did not make her pain go away in the usual 1- [address] [facility] Medical History Seasonal allergic rhinitis ?J30.2 - Other seasonal allergic rhinitis (ICD-10) Iron deficiency anemia ?D50.9 - Iron deficiency anemia, unspecified (ICD-10) Rosacea ?L71.9 - Rosacea, unspecified (ICD-10) Diabetes mellitus type II, controlled, with no complications ?E11.9 - Type 2 diabetes mellitus without complications (ICD-10) Recurrent biliary colic ?K80.50 - Calculus of bile duct without cholangitis or cholecystitis without obstruction (ICD-10) 1 para 1 ?Z78.9 - Other specified health status (ICD-10) Surgical History Status post urethral surgery ?Z98.890 - Other specified postprocedural states (ICD-10) Status post ?Z98.891 - History of uterine scar from previous surgery (ICD-10) Social History Narrative: . Lives with . 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 Older dog, Punkie. What is your current living situation?: I presently have a place to live Problems where you live: no known problems Problems where you live details: na In the past 12 months, utilities in danger of being shut off: no In past 12 months, lack of transportation kept you from medical appts, meetings, work, or getting things needed for daily living: no In the past 12 mos, have been you worried that your food would run out before you had money to buy more?: never true In the past 12 mos, the food you bought just didn't last and you didn't have money to buy more?: never true Highest level of school completed/degree received: high school graduate Smoking Status: Former smoker How often do you have a drink containing alcohol: never AUDIT-C Alcohol total score: 0 Non-prescribed substance use: denies use Caffeine: Yes How often does anyone, including family, friends and others, physically hurt you : never How often does anyone, including family, friends and others, insult or talk down to you: never How often does anyone, including family, friends and others, threaten you with harm: never How often does anyone, including family, friends and others, scream or curse at you: never service: No Meds Home Medications and Allergies Home Medications ?Medication ?Instructions ?Recorded ?Confirmed ?Type ascorbic acid (vitamin C) 500 mg 500 mg PO DAILY 01/16/25 01/16/25 History chewable tablet (Acerola C) cetirizine 10 mg tablet (24Hour 10 mg PO DAILY PRN 01/16/25 01/16/25 History Allergy) ferrous sulfate 325 mg (65 mg 325 mg PO DAILY 01/16/25 01/16/25 History iron) tablet (Feosol) metformin 500 mg tablet 500 mg PO QID 01/16/25 01/16/25 History minocycline 50 mg capsule 50 mg PO DAILY 01/16/25 01/16/25 History ondansetron HCl 4 mg tablet 4 mg PO Q6-8H PRN 01/16/25 01/16/25 History soy isoflavone-black cohosh cap PO 01/16/25 History root-magnolia bark 155 mg capsule (Estroven) tirzepatide 10 mg/0.5 mL 10 mg subcut QWEEK 01/16/25 01/16/25 History subcutaneous pen injector (Mounjaro) Allergies Allergy/AdvReac Type Severity Reaction Status Date / Time codeine AdvReac Intermediate Verified 01/16/25 18:20 prochlorperazine (From AdvReac Intermediate Verified 01/16/25 18:20 Compazine) Exam Narrative: Exam Narrative: General appearance: Alert, cooperative, and in no distress Eyes: PERRLA, eye lids clear, and sclera white HENT Head: Normocephalic Ears: External ears normal Pulmonary: Breathing nonlabored on room air Cardiovascular Heart: Regular rate Extremities: warm and well perfused Gastrointestinal Abdominal: No scars. Soft. She is nontender to palpation in the upper abdomen but does have a positive Barcenas sign. Musculoskeletal: Extremities: Upper: Both upper extremities have normal joint range of motion and intact strength. Lower: Both lower extremities have normal joint range of motion and intact strength. Skin: Normal skin color, texture, and turgor. Neurologic: No focal deficits Psychiatric: Alert, oriented, cooperative, normal affect. Const: Vital Signs, click to edit/add: Vital Signs - 24 hr 01/16/25 18:07 01/16/25 19:04 01/16/25 19:15 Temperature 98.6 F Pulse Rate 107 H 99 Pulse Rate [Pulse Oximeter] Pulse Rate [Right Pulse Oximeter] 128 H Pulse Rate [orthos tatic lying] Pulse Rate [orthos tatic sitting] Pulse Rate [orthos tatic standing] Respiratory Rate 18 16 Blood Pressure [Le ft Arm] Blood Pressure [Ri ght Upper Arm] 155/99 H Blood Pressure [or thostatic lying] Blood Pressure [or thostatic sitting] Blood Pressure [or thostatic standing ] Pulse Oximetry 99 98 98 Oxygen Delivery Me thod Room Air 01/16/25 19:30 01/16/25 20:40 01/16/25 20:40 Temperature 97.6 F Pulse Rate 94 Pulse Rate [Pulse Oximeter] 101 H Pulse Rate [Right Pulse Oximeter] Pulse Rate [orthos tatic lying] Pulse Rate [orthos tatic sitting] Pulse Rate [orthos tatic standing] Respiratory Rate 18 18 Blood Pressure [Le ft Arm] 143/82 H Blood Pressure [Ri ght Upper Arm] Blood Pressure [or thostatic lying] Blood Pressure [or thostatic sitting] Blood Pressure [or thostatic standing ] Pulse Oximetry 100 99 99 Oxygen Delivery Me thod Room Air Room Air 01/16/25 23:00 01/16/25 23:00 01/16/25 23:00 Temperature 97.8 F Pulse Rate Pulse Rate [Pulse Oximeter] 101 H 93 Pulse Rate [Right Pulse Oximeter] Pulse Rate [orthos tatic lying] Pulse Rate [orthos tatic sitting] Pulse Rate [orthos tatic standing] Respiratory Rate 18 18 Blood Pressure [Le ft Arm] 114/72 Blood Pressure [Ri ght Upper Arm] Blood Pressure [or thostatic lying] Blood Pressure [or thostatic sitting] Blood Pressure [or thostatic standing ] Pulse Oximetry 99 98 Oxygen Delivery Sd thod Room Air Room Air 01/17/25 03:00 01/17/25 06:00 Temperature 97.9 F Pulse Rate Pulse Rate [Pulse Oximeter] 91 Pulse Rate [Right Pulse Oximeter] Pulse Rate [orthos tatic lying] 93 Pulse Rate [orthos tatic sitting] 91 Pulse Rate [orthos tatic standing] 98 Respiratory Rate 16 Blood Pressure [Le ft Arm] 113/73 Blood Pressure [Ri ght Upper Arm] Blood Pressure [or thostatic lying] 104/70 Blood Pressure [or thostatic sitting] 116/73 Blood Pressure [or thostatic standing ] 103/73 Pulse Oximetry 99 Oxygen Delivery Sd thod Room Air Results Labs Labs: Abnormal lab results 01/16/25 01/16/25 01/17/25 Range/Units 18:28 18:40 06:14 RBC 5.57 H (4.00-5.20) m/uL Neut % (Auto) 75.6 H (42.0-72.0) % Lymph % (Auto) 17.3 L (20-44) % Neut # (Auto) 8.00 H (1.7-7.0) K/uL Lactate 2.8 H (0.5-1.9) mmol/L Total Bilirubin 1.8 H (0.1-1.5) mg/dL Direct Bilirubin 1.2 H 0.6 H (0.0-0.5) mg/dL AST 178 H 285 H (12-35) U/L ALT 130 H 291 H (4-35) U/L C-Reactive Protein 1.4 H 1.6 H (0.5-1.0) mg/dL Total Protein 8.4 H (6.0-8.3) g/dL POC Troponin I 0.00 L (0.01-0.04) ng/ml Diabetes panel 01/16/25 01/17/25 Range/Units 18:40 06:14 Sodium 138 140 (135-149) mmol/L Potassium 3.6 4.4 (3.6-5.1) mmol/L Chloride 99 106 (96-114) mmol/L Carbon Dioxide 25 25 (20-32) mmol/L BUN 13 11 (5-24) mg/dL Creatinine 0.6 0.5 (0.5-1.5) mg/dL Glucose 107 96 (60-115) mg/dL Calcium 9.6 8.7 (8.4-10.6) mg/dL AST 178 H 285 H (12-35) U/L ALT 130 H 291 H (4-35) U/L Alkaline Phosphatase 104 102 (40-150) U/L Total Protein 8.4 H 7.0 (6.0-8.3) g/dL Albumin 5.0 4.1 (3.3-5.0) g/dL Calcium panel 01/16/25 01/17/25 Range/Units 18:40 06:14 Calcium 9.6 8.7 (8.4-10.6) mg/dL Albumin 5.0 4.1 (3.3-5.0) g/dL Pituitary panel 01/16/25 01/17/25 Range/Units 18:40 06:14 Sodium 138 140 (135-149) mmol/L Potassium 3.6 4.4 (3.6-5.1) mmol/L Chloride 99 106 (96-114) mmol/L Carbon Dioxide 25 25 (20-32) mmol/L BUN 13 11 (5-24) mg/dL Creatinine 0.6 0.5 (0.5-1.5) mg/dL Glucose 107 96 (60-115) mg/dL Calcium 9.6 8.7 (8.4-10.6) mg/dL Adrenal panel 01/16/25 01/17/25 Range/Units 18:40 06:14 Sodium 138 140 (135-149) mmol/L Potassium 3.6 4.4 (3.6-5.1) mmol/L Chloride 99 106 (96-114) mmol/L Carbon Dioxide 25 25 (20-32) mmol/L BUN 13 11 (5-24) mg/dL Creatinine 0.6 0.5 (0.5-1.5) mg/dL Glucose 107 96 (60-115) mg/dL Calcium 9.6 8.7 (8.4-10.6) mg/dL Total Bilirubin 1.8 H 1.3 (0.1-1.5) mg/dL AST 178 H 285 H (12-35) U/L ALT 130 H 291 H (4-35) U/L Alkaline Phosphatase 104 102 (40-150) U/L Total Protein 8.4 H 7.0 (6.0-8.3) g/dL Albumin 5.0 4.1 (3.3-5.0) g/dL All other labs normal. Imaging Abdominal ultrasound report/results: report reviewed and image reviewed Additional studies: Ultrasound abdomen 01/16/2025: CLINICAL HISTORY: Right upper quadrant pain FINDINGS: Increased echogenicity of the liver. There is a normal appearance of the hepatic IVC and proximal abdominal aorta. There is no evidence of ascites. Stones in the gallbladder. The gallbladder wall measures for mm in thickness. Positive sonographic Barcenas`s sign. The common bile duct is of normal size and measures 3 mm in diameter at the level of the taylor hepatis. The visualized portions of the pancreas appears normal. Right kidney is unremarkable. IMPRESSION: 1. Cholelithiasis with wall thickening and positive sonographic Barcenas`s sign. Findings may reflect cholecystitis. Dictated by Devorah Molina MD @ 01/16/2025 8:10:34 PM Progress Note:A&P Assessment and plan (1) Acute cholecystitis: Status: Acute (2) Cholelithiasis: Status: Acute (3) Elevated bilirubin: Status: Acute (4) Elevated LFTs: Status: Acute Plan The patient is a 44-year-old female with acute cholecystitis and elevation of LFTs. I explained that the treatment for this is laparoscopic cholecystectomy. We discussed the procedure as well as risks and benefits of surgery which include bleeding, infection, bile leak, conversion to open or injury to other structures, specifically the common bile duct. We also discussed recovery. Because of the patient's elevated liver enzymes, I explained that there is concern for choledocholithiasis. We discussed an intraoperative cholangiogram followed by attempts to remove the stone by either flushing or laparoscopic common bile duct exploration. They understand that if unsuccessful, an ERCP may be necessary. She is agreeable to proceed and signed informed consent. We will plan on surgery today.
[2025-01-17] MEDS: 0.9 % SODIUM CHL 20 ml vial INJECTION (08:59)
[2025-01-17] MEDS: iopamidoL 50 ML VIAL INJECTION (08:59)
[2025-01-17] MEDS: 0.9% SODIUM CHL 50 ML VIAL INJECTION (08:59)
[2025-01-17] MEDS: BUPIVACAINE 0.25% 30 ML INJECTION (08:59)
[2025-01-17] MEDS: LACTATED RINGERS 500 ML 500 ML 125 ML IV (09:00)
[2025-01-17] MEDS: GLUCAGON,HUMAN RECOMBINANT 1 MG/ML VIAL IV (09:00)
--- NOTE | 2025-01-17 09:16 | NUTR.NU ---
RDN with MD consult for miscellaneous. Patient admitted with acute cholecystitis. Plan for the OR today. Patient may discharge later today. Not appropriate for nutrition visit at this time with surgery planned for today. RDN will continue to monitor and follow-up prn.
--- NOTE | 2025-01-17 09:30 | P.GSOP_ITS ---
Operative Note Date of procedure: 01/17/25 Pre-op diagnosis: 1. Acute cholecystitis 2. Elevated liver enzymes, concern for choledocholithiasis Post-op diagnosis: Same Type of Procedure: 1. Laparoscopic cholecystectomy 2. Intraoperative cholangiogram Indications: The patient is a 44-year-old female who presented to the emergency department yesterday evening with right upper quadrant pain that was unrelenting. She was found to have gallbladder wall thickening and gallstones. Her common bile duct was within normal limits, however she did have elevated transaminases, total and direct bilirubin. This morning her direct bilirubin remained elevated though she had improvement in her total bilirubin. I recommended cholecystectomy with cholangiogram to evaluate for choledocholithiasis. Procedure Description: After discussing the risks and benefits of the procedure, the patient signed informed consent.? The operative site was marked and the patient was brought to the operating room and placed on the operating table in supine position.? Care was taken to pad the patient's pressure points.?? The patient was then intubated by anesthesia.?? The operative site was then prepped and draped in the usual sterile fashion.? A time-out was then performed. Entrance to the abdomen was gained via a 5 mm Visiport in the left upper quadrant. The abdomen was insufflated and briefly surveyed for signs of injury. There was none. A 10 mm umbilical port was placed as well as 2 working ports al brigette the right costal margin, all under direct vision. The patient was then placed in reverse Trendelenburg position with the right side up. The gallbladder fundus was grasped and retracted cephalad. A small amount of dissection was needed to free omental adhesions from the gallbladder. The infundibulum was grasped. A combination of hook cautery and blunt dissection was used to carefully dissect out the cystic duct and artery until they could clearly be seen entering the gallbladder without any intervening structures. The gallbladder wall was edematous. The cystic artery was clipped with 2 clips proximal 1 clip distal and transected. The cystic duct had small stones noted impacted within proximally. These were pushed into the gallbladder itself and a clip was placed at the gallbladder neck. Below this a ductotomy was then created. The cholangiocatheter was then advanced into the abdomen and through the ductotomy. This was clamped and a saline leak test was then performed. This was negative. The patient was laid flat and fluoroscopy was brought into the field. Contrast was then injected and there was brisk filling of the right and left hepatic ducts as well as the common bile duct. There was no obvious filling defect noted. There was no filling of the duodenum however. 1 mg of glucagon was then administered. 5 minutes passed and additional saline and then contrast were flushed through the catheter. There continued to be no filling of the duodenum. The cholangiocatheter was then removed. The patient was placed back into reverse Trendelenburg with right side up. The cystic duct was clipped with 2 clips distally and transected. The gallbladder was then taken off of the liver bed and removed from the abdomen using an Endo- Catch bag. The gallbladder bed was surveyed for hemostasis which appeared adequate. A small amount of bile which had spilled was suctioned from the abdomen. The remaining ports were then removed and the abdomen desufflated. The umbilical port fascia was closed with 0 Vicryl. The skin was closed with absorbable subcuticular suture. Instrument sponge and needle counts were correct at the end of the case. The patient was then woken and transferred to the PACU in stable condition. Sterile dressings were then applied. ? The patient tolerated the procedure well. Findings: 1. Cholecystitis 2. No filling defects seen on cholangiogram, however failure of duodenum to fill. Anesthesia: GETA Surgeon: Maru Carter MD Estimated blood loss (mL): 5 Specimen: Gallbladder Condition: stable Disposition: PACU
--- NOTE | 2025-01-17 09:46 | P.ANES_ITS ---
Anesthesia Charges Start Date/Time Anesthesia Start Date: 01/17/25 Anesthesia Start Time: 07:50 Stop Date/Time Anesthesia Stop Date: 01/17/25 Anesthesia Stop Time: 09:44 Summary Emergency: AUTOMOTIVE TIRE TESTER Coding CPT Codes CPT Codes: ANESTH SURG UPPER ABDOMEN - 23578 ([id number]) P2 - PATIENT W/MILD SYST DISEASE, QZ - AUTOMOTIVE TIRE TESTER SVC W/O JACK SPINNER BY Additional Codes: Summary - Emergency: AUTOMOTIVE TIRE TESTER ([id number])
--- NOTE | 2025-01-17 09:46 | W.ANESCHARGE ---
Anesthesia Charges Start Date/Time Anesthesia Start Date: 01/17/25 Anesthesia Start Time: 07:50 Stop Date/Time Anesthesia Stop Date: 01/17/25 Anesthesia Stop Time: 09:44 Summary Emergency: ATTENDING ANESTHESIOLOGIST Coding CPT Codes CPT Codes: ANESTH SURG UPPER ABDOMEN - 78045 ([id number]) P2 - PATIENT W/MILD SYST DISEASE, QZ - ATTENDING ANESTHESIOLOGIST SVC W/O DESIGN CELL ENGINEER BY Additional Codes: Summary - Emergency: ATTENDING ANESTHESIOLOGIST ([id number])
[2025-01-17] MEDS: ONDANSETRON 2 MG/ML inj 4 MG IVP ×2 (09:55→11:21)
[2025-01-17] MEDS: HYDROmorphone 0.5 mg/0.5 ml inj IVP ×2 (10:55→13:18)
[2025-01-17 11:48] LABS: Lactate* 0.9 mmol/L (0.5-1.9)
[2025-01-17] MEDS: HYDROCODONE-ACETAMIN 5-325 MG 1 TAB PO (15:12)
--- NOTE | 2025-01-17 19:56 | PC.NURSE ---
End of shift [id number] - Pt alert, oriented, cooperative. Arrived from PACU at approximately 1030. Pt appeared drowsy but able to follow commands. Lap sites x 3 CDI, ice in place for increased comfort. Pt reported pain in abdomen as 8-9/10. Medication given per MAR with pt reporting improvement and rating pain as 5/10. Able to ambulate with standby assistance and void independently. Tolerating RA and advancement of diet. IV removed with catheter intact. Education provided regarding medication administration and diet. Pt and spouse verbalized understanding. Pt d/c'd to home with spouse via wheelchair at approximately 1815.
--- NOTE | 2025-01-18 12:39 | PM.ANPOST ---
Post Anesthesia Note Post Anesthesia Note Patient seen: Inpatient Respiratory Status: adequate Cardiovascular Status: adequate Mental Status: baseline Pain: adequate Temp: baseline Anesthetic awareness: no Complications: none Follow care: none
== END 2025-01-17 18:15 | disposition home or self-care (01) ==
LOC: ED 20:07 → MEDSURG 01-17 07:21 → SS 01-17 07:43 → MEDSURG 01-17 07:45
PROVIDERS: Internal Medicine; Emergency Provider Family Medicine; Visit Provider Surgery
PROC: 0FT44ZZ Resection of Gallbladder, Percutaneous Endoscopic Approach (ICD-10-PCS; CPT 47563; principal; 2025-01-17 07:30)
DX: K80.00 Calculus of gallbladder with acute cholecystitis without obstruction (principal); R74.01 Elevation of levels of liver transaminase levels; E11.9 Type 2 diabetes mellitus without complications; Z79.84 Long term (current) use of oral hypoglycemic drugs; Z79.85 Long-term (current) use of injectable non-insulin antidiabetic drugs; Z79.4 Long term (current) use of insulin
CPT/HCPCS: 47563; 00790; 36415; 74300; 76000; 76705; 80048; 80076; 82150; 82962; 83605; 83690; 84484; 84703; 85025; 86140; 88304; 93005; 94761; 99140; 99285; A9270; G0378; J0295; J0330; J0665; J1100; J1171; J1610; J1630; J2250; J2270; J2371; J2405; J2470; J2704; J2710; J3010; J7030; J7120; Q9967

== ENCOUNTER 2025-01-18 08:52 | Outpatient (CLI) | payer BC, SELFPAY | END 2025-01-18 08:53 | disposition home or self-care (01) | LOC: NFLDREF 01-19 02:14 | PROVIDERS: Visit Provider Surgery | DX: R17 Unspecified jaundice (principal); K81.9 Cholecystitis, unspecified | CPT/HCPCS: 80076; 83690 ==

== ENCOUNTER 2025-01-18 16:19 | Outpatient (CLI) | payer BC, SELFPAY ==
--- NOTE | 2025-01-18 16:30 | CRLHL7_ITS ---
For Patients: As a result of the Century Cures Act, medical imaging exams and procedure reports are released immediately into your electronic medical record. You may view this report before your referring provider. If you have questions, please contact your health care provider. INDICATION: Elevated bilirubin. COMPARISON: Abdominal ultrasound dated 16 January 2025. TECHNIQUE: MRCP with heavily T2 weighted 2D and 3D MRCP images. T1 in- and out of phase and T2 weighted images also performed. No gadolinium administered. Findings : [id number] diffuse fatty infiltration of the liver. No focal abnormalities identified in the visualized portions of the liver, spleen, pancreas, adrenal glands, and kidneys. No hydronephrosis. No adenopathy. Cholecystectomy. No intra or extrahepatic bile duct dilation with the common bile duct measuring 6 mm. No filling defects in the biliary system. Normal size of the main pancreatic duct. Impression : 1. Cholecystectomy. 2. No bile duct dilation. No choledocholithiasis. Normal size of the main pancreatic duct. 3. Mild to moderate diffuse fatty infiltration of the liver. Dictated by Nahum Molina MD @ 01/19/2025 8:26:41 AM (Electronically Signed)
== END 2025-01-18 16:20 | disposition home or self-care (01) ==
LOC: MRI 16:20
PROVIDERS: Visit Provider Surgery
DX: R17 Unspecified jaundice (principal); K76.0 Fatty (change of) liver, not elsewhere classified
CPT/HCPCS: 74181; 80076; 83690

== ENCOUNTER 2025-02-01 09:01 | Outpatient (CLI) | payer BC, SELFPAY | END 2025-02-01 09:02 | disposition home or self-care (01) | PROVIDERS: Visit Provider Surgery | DX: R79.89 Other specified abnormal findings of blood chemistry (principal) | CPT/HCPCS: 80076 ==